=== PATIENT | male | born 1935 | race Caucasian/White ===

== ENCOUNTER 2020-06-12 22:18 | Emergency (ER) | payer MEDICARE, BC | END 2020-06-12 22:50 | disposition left against medical advice (07) | LOC: NAV ERS 22:18 | DX: Z53.21 Procedure and treatment not carried out due to patient leaving prior to being seen by health care provider (principal) ==

== ENCOUNTER 2020-06-16 11:08 | Outpatient (CLI) | payer MEDICARE, BC ==
[2020-06-16 11:44] LABS: Hemoglobin 12.5 g/dL (14.0-18.0); Mean Corpuscular HGB CONC 32.7 g/dL (32.0-36.0); Mean Corpuscular Hemoglobin 30.3 pg (27.0-31.0); Mean Corpuscular Volume 92.9 fL (78.0-98.0); Mean Platelet Volume 7.7 fL (7.4-10.4); Platelet Count 234 thou/uL (130-400); RBC Distribution Width 14.5 % (11.5-14.5); Red Blood Cell (RBC) Count 4.11 mill/uL (4.70-6.10); White Blood Cell (WBC) Count 8.7 thou/uL (4.8-10.8)
[2020-06-16 11:46] LABS: INR-International Normal Ratio 1.2; Prothrombin Time 14.8 sec (12.0-14.7)
[2020-06-16 11:55] LABS: ALT (SGPT) 63 U/L (8-55); AST (SGOT) 34 U/L (5-34); Albumin 3.6 g/dL (3.4-4.8); Alkaline Phosphatase 103 U/L (40-110); Anion Gap 13 mmol/L (10-20); BUN (Urea Nitrogen) 17 mg/dL (8.4-25.7); Bilirubin, Total 0.9 mg/dL (0.2-1.2); Calc. Creatinine Clearance 0 mL/min (70-130); Calcium 8.7 mg/dL (7.8-10.44); Carbon Dioxide 27 mmol/L (23-31); Chloride 104 mmol/L (98-107); Globulin 2.3 g/dL (2.4-3.5); Glucose 66 mg/dL (83-110); Protein, Total 5.9 g/dL (5.8-8.1); Sodium 140 mmol/L (136-145)
== END 2020-06-16 11:09 | disposition home or self-care (01) ==
LOC: NAV LAB 11:08
PROVIDERS: ATTEND Internal Medicine
DX: L03.90 Cellulitis, unspecified (principal); I50.9 Heart failure, unspecified; I38 Endocarditis, valve unspecified; I48.91 Unspecified atrial fibrillation
CPT/HCPCS: 36415; 80053; 80202; 85027; 85610

== ENCOUNTER 2020-06-18 16:42 | Outpatient (CLI) | payer MEDICARE, BC ==
[2020-06-18 18:08] LABS: INR-International Normal Ratio 1.5; Prothrombin Time 18.1 sec (12.0-14.7)
== END 2020-06-18 16:43 | disposition home or self-care (01) ==
LOC: NAV LAB 16:42
PROVIDERS: ATTEND Internal Medicine
DX: I48.91 Unspecified atrial fibrillation (principal)
CPT/HCPCS: 36415; 85610